=== PATIENT | male | born 1995 | race Caucasian/White ===

== ENCOUNTER 2017-10-05 16:36 | Emergency (ER) | payer OTHER, BC ==
[~2017-10-05] VITALS: Ht 177.8 cm; Wt 68.0 kg
[~2017-10-05 16:36] MED LIST: AMOXICILLIN500 MG PO; DOXYCYCLINE150 M1 PO; MOTRIN400 MG PO; MOTRIN600 MG PO; NYSTATIN CREAM15 GM T; OMNICEF300 MG PO; PREDNICOT20 MG PO; VICODIN ES 7501 TA1 PO
[2017-10-05] MEDS ORDERED: PENICILLIN VK500 MG PO (16:54)
[2017-10-05] MEDS ORDERED: NAPROSYN500 MG PO (16:54)
[2017-10-05] MEDS ORDERED: Peridex 473 ML473 ML PO (16:54)
== END 2017-10-05 16:51 | disposition home or self-care (01) ==
LOC: ED 16:36
DX: K02.9 Dental caries, unspecified (principal); K08.89 Other specified disorders of teeth and supporting structures; R03.0 Elevated blood-pressure reading, without diagnosis of hypertension; Z88.2 Allergy status to sulfonamides; Z88.6 Allergy status to analgesic agent

== ENCOUNTER 2017-11-08 15:02 | Emergency (ER) | payer OTHER, BC ==
[~2017-11-08] VITALS: Ht 175.2 cm; Wt 63.5 kg
[~2017-11-08 15:02] MED LIST changes: +NAPROSYN500 MG PO; +PENICILLIN VK500 MG PO; +Peridex 473 ML473 ML PO
[2017-11-08] MEDS ORDERED: IBU800 M1 PO (15:29)
[2017-11-08] MEDS ORDERED: AMOXICILLIN500 M3 PO (15:29)
== END 2017-11-08 15:42 | disposition home or self-care (01) ==
LOC: ED 15:02
DX: K08.89 Other specified disorders of teeth and supporting structures (principal); Z98.890 Other specified postprocedural states; Z88.2 Allergy status to sulfonamides; Z88.5 Allergy status to narcotic agent

== ENCOUNTER 2018-06-18 17:58 | Emergency (ER) | payer OTHER, BC ==
[~2018-06-18] VITALS: Ht 177.8 cm; Wt 68.0 kg
[~2018-06-18 17:58] MED LIST changes: +AMOXICILLIN500 M3 PO; +IBU800 M1 PO
[2018-06-18] MEDS ORDERED: NAPROSYN500 MG PO (18:14)
[2018-06-18] MEDS ORDERED: PREDNISONE10 MG PO (19:05)
== END 2018-06-18 19:24 | disposition home or self-care (01) ==
LOC: ED 17:58
DX: M25.532 Pain in left wrist (principal); R03.0 Elevated blood-pressure reading, without diagnosis of hypertension; Z88.2 Allergy status to sulfonamides; Z88.5 Allergy status to narcotic agent

== ENCOUNTER 2019-12-11 06:02 | Emergency (ER) | payer OTHER ==
[~2019-12-11] VITALS: Ht 177.8 cm; Wt 68.0 kg
[~2019-12-11 06:02] MED LIST changes: +PREDNISONE10 MG PO
[2019-12-11] MEDS ORDERED: IBU800 MG PO (06:18)
[2019-12-11] MEDS ORDERED: CLINDAMYCIN HC300 MG PO (06:18)
== END 2019-12-11 06:44 | disposition home or self-care (01) ==
LOC: ED 06:02
DX: S02.5XXA Fracture of tooth (traumatic), initial encounter for closed fracture (principal); Z88.2 Allergy status to sulfonamides; Z88.6 Allergy status to analgesic agent; X58.XXXA Exposure to other specified factors, initial encounter; Y93.89 Activity, other specified; Y92.89 Other specified places as the place of occurrence of the external cause; Y99.8 Other external cause status

== ENCOUNTER → 2023-04-05 | Outpatient (CLI) | payer OTHER ==
[~2023-04-05] MED LIST changes: +CLINDAMYCIN HC300 MG PO; +IBU800 MG PO
== END | disposition home or self-care (01) ==
LOC: CARDSVC 11:37
PROVIDERS: ATTEND Internal Medicine
DX: I34.0 Nonrheumatic mitral (valve) insufficiency (principal)